=== PATIENT | female | born 1975 | race Caucasian/White ===

== ENCOUNTER 2018-11-12 08:33 | Emergency (ER) | payer OTHER ==
[~2018-11-12] VITALS: Ht 170.2 cm; Wt 146.0 kg
[2018-11-12 08:43] VITALS: BP 180/104
== END 2018-11-12 09:45 | disposition left against medical advice (07) ==
LOC: ER 08:33
DX: K04.7 Periapical abscess without sinus (principal); Z53.21 Procedure and treatment not carried out due to patient leaving prior to being seen by health care provider